=== PATIENT | female | born 1995 | race Caucasian/White ===

== ENCOUNTER 2018-03-28 15:18 | Emergency (ER) | payer SELFPAY ==
[2018-03-28 18:51] VITALS: BP 100/67
--- NOTE | 2018-03-28 20:01 | ED ---
Loraine Li Elizabeth, scribed for Naun Reyes MD on 03/28/18 at 1629 . Psychiatric Complaint - HPI Summary HPI Summary: This patient is a 22 year old F presenting to [facility] accompanied by her mother with a chief complaint of manic depression and concerns of self-harm. Symptoms aggravated by nothing. Symptoms alleviated by nothing. 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 She states that she usually only feels emotions in either extreme highs or extreme lows. Per triage note, pt says she is bipolar. The patient is worried about hurting herself but denies SI. Pt reports that she was on Zoloft 2 years ago but stopped taking it due to side effects. She is averse to therapy because she says the therapist gives her pitying looks that she cant stand. Patient denies sleep disturbances or changes in appetite. Patient has hx of tendonitis in her ankle and gluten allergy. Pt notes that needles give her anxiety attacks. - History Of Current Complaint Chief Complaint: EDMentalHealth Hx Obtained From: Patient Hx Last Menstrual Period: 1 MONTH AGO Onset/Duration: Lasting Weeks, Still Present Timing: Constant Severity Initially: Mild Severity Currently: Moderate Character: Manic, Depressed Aggravating Factor(s): Nothing Alleviating Factor(s): Nothing Associated Signs And Symptoms: Negative: Sleep Disturbance, Appetite Change Related History: Positive For: Prior Psychiatric Issues Has Suicidal: Denies: Thoughts - Allergies/Home Medications Allergies/Adverse Reactions: Allergies Allergy/AdvReac Type Severity Reaction Status Date / Time MS Wheat Extract Allergy Severe STOMACH Verified 07/09/15 19:59 [Wheat Extract] PAIN MS Milk-related Compounds AdvReac Intermediate Vomiting, Verified 07/09/15 19: 59 [Milk-related Compounds] oysters AdvReac Abdominal Uncoded 01/16/14 10:15 Pain Home Medications: Home Medications Norgestimate-Ethinyl Estradiol [Sprintec 28 0.25-35 mg-Mcg] 1 tab PO DAILY 03/28 [History Confirmed 03/28/18] PMH/Surg Hx/FS Hx/Imm Hx Endocrine/Hematology History: Denies: Hx Diabetes, Hx Thyroid Disease Cardiovascular History: Denies: Hx Congestive Heart Failure, Hx Hypertension Respiratory History: Denies: Hx Asthma, Hx Chronic Obstructive Pulmonary Disease (COPD) GI History: Reports: Other GI Disorders - IBS Denies: Hx Ulcer History: Denies: Hx Renal Disease Infectious Disease History: No Infectious Disease History: Denies: Hx Hepatitis, Hx Human Immunodeficiency Virus (HIV), Traveled Outside the [place] in Last 30 Days - Social History Alcohol Use: None Substance Use Type: Reports: None Smoking Status (MU): Never Smoked Tobacco Review of Systems Negative: Fever Negative: Epistaxis Negative: Cough Positive: Depressed, Other - thoughts of self-harm All Other Systems Reviewed And Are Negative: Yes Physical Exam - Summary Physical Exam Summary: Appearance: The patient is well-nourished in no acute distress and in no acute pain. Skin: The skin is warm and dry and skin color reflects adequate perfusion. HEENT: The head is normocephalic and atraumatic. The pupils are equal and reactive. The conjunctivae are clear and without drainage. Nares are patent and without drainage. Mouth reveals moist mucous membranes and the throat is without erythema and exudate. The external ears are intact. The ear canals are patent and without drainage. The tympanic membranes are intact. Neck: the neck is supple with full range of motion and non-tender. There are no carotid bruits. There is no neck vein distension. Respiratory: Chest is non-tender. Lungs are clear to auscultation and breath sounds are symmetrical and equal. Cardiovascular: Heart is regular rate and rhythm. There is no murmur or rub auscultated. There is no peripheral edema and pulses are symmetrical and equal. Abdomen: The abdomen is soft and non-tender. There are normal bowel sounds heard in all four quadrants and there is no organomegaly palpated. Musculoskeletal: There is no back tenderness noted. Extremities are non-tender with full range of motion. There is good capillary refill. There is no peripheral edema or calf tenderness elicited. Neurological: Patient is alert and oriented to person, place and time. The patient has symmetrical motor strength in all four extremities. Cranial nerves are grossly intact. Deep tendon reflexes are symmetrical and equal in all four extremities. Psychiatric: The patient has an appropriate affect and does not exhibit any anxiety or depression. Triage Information Reviewed: Yes Vital Signs On Initial Exam: Initial Vitals Temp Pulse Resp BP Pulse Ox 98.4 F 89 17 116/77 97 03/28/18 15:25 03/28/18 15:25 03/28/18 15:25 03/28/18 15:25 03/28/18 15:25 Vital Signs Reviewed: Yes Diagnostics - Vital Signs Vital Signs Temp Pulse Resp BP Pulse Ox 03/28/18 16:19 97.5 F 77 16 111/71 100 03/28/18 15:25 98.4 F 89 17 116/77 97 - Laboratory Lab Statement: Any lab studies that have been ordered have been reviewed, and results considered in the medical decision making process. Course/Dx - Course Course Of Treatment: Ms. Smith was medically cleared in the ED and went to the [facility] for a [facility]. They thought that she was safe for D/C. - Differential Dx/Clinical Impression Provider Diagnosis: Mood disorder Discharge - Sign-Out/Discharge Documenting (check all that apply): Discharge/Admit/Transfer - Discharge Plan Condition: Stable Disposition: HOME Patient Education Materials: Mood Disorders (ED) Referrals: Aniyah Dawkins MD [Medical Doctor] - Additional Instructions: Per completion of a mental health evaluation, you are cleared for release and do not require inpatient psychiatric hospitalization at this time. Please go to nearest emergency room or call 911 if safety concerns arise or condition worsens. Important Phone Numbers: [facility]~~ ph:[phone] Suicide Prevention and Crisis Services~~~~~~~~~~~~~~~~~~~~~~~ ph:[phone] [place] Suicide Prevention Lifeline~~~~~~~~~~~~~~~~~~~~~~~ ~~ ph:[phone] (7289) [facility]~~~~~~~~~~~~~~~~~~ ~~ ph:[phone] Alcoholics Anonymous~~~~~~~~~~~~~~~~~~~~~~~~~~~~~~~~~~~~~~~~~~~~~~~~~ ph:[phone] [facility] [place] ~~ ph:[phone] [place] [employer] ph:[phone] RECOMMENDATION: [facility] at to schedule an appointment. - Billing Disposition and Condition Condition: STABLE Disposition: HOME The documentation as recorded by the Loraine khoury Elizabeth accurately reflects the service I personally performed and the decisions made by me, Naun Reyes MD.
== END 2018-03-28 19:00 | disposition home or self-care (01) ==
LOC: ED 15:18
DX: F39 Unspecified mood [affective] disorder (principal)
CPT/HCPCS: 99283